=== PATIENT | male | born 1930 | race Asian ===

== ENCOUNTER 2018-01-22 00:42 | Emergency (ER) | payer MEDICARE, OTHER ==
[~2018-01-22] VITALS: Ht 162.6 cm; Wt 60.0 kg
[2018-01-22] MEDS ORDERED: ASPI-496 PO (01:01)
[2018-01-22] MEDS ORDERED: LOSA50TA7 PO (01:01)
[2018-01-22] MEDS ORDERED: AMLO5TAB7 PO (01:01)
[2018-01-22] MEDS ORDERED: CARV6.252 PO (01:01)
[2018-01-22] MEDS ORDERED: GLIP5TAB10 PO (01:01)
[2018-01-22] MEDS ORDERED: FINA5TAB4 PO (01:01)
[2018-01-22] MEDS ORDERED: TAMS0.4C2 PO (01:01)
[2018-01-22 01:25] LABS: BASOPHILS # (AUTO) 0.03 x10^3/uL (0-0.1); BASOPHILS % (AUTO) 0 % (0-1); EOSINOPHILS # (AUTO) 0.32 x10^3/uL (0-0.4); EOSINOPHILS % (AUTO) 4 % (1-7); LYMPHOCYTES # (AUTO) 1.76 x10^3/uL (1-3.4); LYMPHOCYTES % (AUTO) 23 % (22-44); MD NO; MEAN CORPUSCULAR HEMOGLOBIN 33.2 pg (27.5-34.5); MEAN CORPUSCULAR HGB CONC 34.1 g/dL (33.2-36.2); MEAN CORPUSCULAR VOLUME 97.2 fL (81-97); MEAN PLATELET VOLUME 7.7 fL (7.4-10.4); MONOCYTES # (AUTO) 0.41 x10^3/uL (0.2-0.8); MONOCYTES % (AUTO) 5 % (2-9); NEUTROPHILS % (AUTO) 68 % (42-75); PLATELET COUNT 171 x10^3/uL (130-400); RED BLOOD COUNT 3.67 x10^6/uL (4.38-5.82); RED CELL DISTRIBUTION WIDTH 14.2 % (9.4-14.8)
[2018-01-22 01:33] LABS: INTERNATIONAL NORMALIZED RATIO 1.03 (0.93-1.1); PROTHROMBIN TIME 10.6 Seconds (9.6-11.5)
[2018-01-22 01:34] LABS: ALBUMIN 3.4 g/dL (3.4-5.0); ANION GAP 9 mmol/L (5-15); CALCIUM 8.6 mg/dL (8.5-10.1); CHLORIDE 106 mmol/L (98-107); CREATININE 1.76 mg/dL (0.7-1.3)
[2018-01-22 01:52] VITALS: BP 142/74
== END 2018-01-22 02:21 | disposition home or self-care (01) ==
LOC: ED 02:17
DX: R55 Syncope and collapse (principal); I25.810 Atherosclerosis of coronary artery bypass graft(s) without angina pectoris; I25.2 Old myocardial infarction
CPT/HCPCS: 36415; 80048; 82040; 85025; 85610; 85730; 93005; 99285